=== PATIENT | male | born 1970 | race Caucasian/White ===

== ENCOUNTER 2017-04-16 19:25 | Observation (INO) | payer BC, OTHER ==
[2017-04-16] MEDS ORDERED: Nitroglycerin 2% Ointment 1 INCH/1 GM Packet ONE (20:15)
[2017-04-16 20:29] LABS: #Basophils 0.1 thou/uL (0.0-0.2); #Eosinphils 0.3 thou/uL (0.0-0.7); #Lymphocytes 2.4 thou/uL (1.20-3.40); #Monocytes 0.8 thou/uL (0.11-0.59); #Neutrophils 6.7 thou/uL (1.40-6.50); %Basophils 0.7 % (0.0-1.0); %Eosinophils 2.6 % (0.0-10.0); %Lymphocytes 23.3 % (21.0-51.0); %Monocytes 8.3 % (0.0-10.0); Hematocrit 50.4 % (42.0-52.0); Mean Platelet Volume 6.5 fL (7.4-10.4); White Blood Cell (WBC) Count 10.2 thou/uL (4.8-10.8)
[2017-04-16] MEDS ORDERED: Acetaminophen 500 MG TAB ONE (20:34)
[2017-04-16 20:48] LABS: Bilirubin Negative (Negative); Blood, Urine Trace (Negative); Glucose, Urine (Dipstick) Negative (Negative); Ketone, Urine Negative (Negative); Nitrite Negative (Negative); Protein, Urine (Dipstick) Trace mg/dL (Neg-Trace); Urobilinogen 0.2 mg/dL (0.2-1.0)
[2017-04-16 20:54] LABS: ALT (SGPT) 45 U/L (8-55); AST (SGOT) 29 U/L (5-34); Alkaline Phosphatase 53 U/L (40-150); Anion Gap 15 mmol/L (10-20); BUN (Urea Nitrogen) 10 mg/dL (8.9-20.6); Bilirubin, Total 0.8 mg/dL (0.2-1.2); CK (CPK) 145 U/L (30-200); Calc. Creatinine Clearance 0 mL/min (70-130); Calcium 9.4 mg/dL (7.8-10.44); Carbon Dioxide 23 mmol/L (22-29); Chloride 106 mmol/L (98-107); Estimated GFR-MDRD 87; Globulin 2.7 g/dL (2.4-3.5); Lipase 15 U/L (8-78); Protein, Total 6.9 g/dL (6.0-8.3)
[2017-04-16 20:56] LABS: Bacteria/HPF None Seen HPF (None Seen); Hyaline Casts/LPF 0-3 HYALINE CAST LPF (0-3 Hyaline); RBC/HPF 0-3 HPF (0-3); Squamous Epithelial None Seen HPF (0-3); WBC/HPF None Seen HPF (0-3)
[2017-04-16 20:58] LABS: Troponin I Less than 0.010 ng/mL (< 0.028)
--- NOTE | 2017-04-16 21:41 | RAD ---
PA AND LATERAL CHEST: Date: 04-16-17 History: Chest pain upon waking up at 1630 hours. Comparison: 11-03-12 FINDINGS: There is focal eventration of the left hemidiaphragm which is stable when compared to the prior exam . There is minimal linear atelectasis versus scarring at the left lung base. The lungs are otherwise clear. Cardiac silhouette and pulmonary vasculature is within normal limits. Degenerative changes a re seen in the spine. There has been no interval change from the prior exam. IMPRESSION: No acute cardiopulmonary process. POS: ANGELA
[2017-04-16 23:12] LABS: Troponin I Less than 0.010 ng/mL (< 0.028)
[2017-04-16] MEDS ORDERED: Ondansetron HCl/PF 4 MG/2 ML Vial IVP PRN (23:16)
[2017-04-16] MEDS ORDERED: Ondansetron ODT 4 MG TAB SL PRN (23:16)
[2017-04-16 23:32] VITALS: BMI 38.2
[2017-04-17 02:21] LABS: Troponin I Less than 0.010 ng/mL (< 0.028)
--- NOTE | 2017-04-17 07:42 | PDOC.EVN ---
Event Note - Event Note Event Note: H&P: 042924 #Chest Pain * serial troponins negative * CXR: no acute infiltrates * check Stress test today * prn analgesics * check labs in AM Admit Telemetry.
--- NOTE | 2017-04-17 08:02 | HP ---
DATE OF ADMISSION: 04/17/2017 at 7:37 a.m. CHIEF COMPLAINT: Left-sided chest pain. HISTORY OF PRESENT ILLNESS: This is a 47-year-old male with a past medical history of tobacco abuse who has been smoking 1 pack per day since the age of 14 and drinking 6 beers per week, who came in with left-sided chest pain radiating to the left scapula. His symptoms began at 1630 yesterday upo n awakening. His pain is worse with exertion, but denies any associated nausea, shortness of breath , diaphoresis or vomiting. He reports that the severity of his pain at its worse was 6-10. REVIEW OF SYSTEMS: A 14 point review of systems is negative except as otherwise indicated above in the HPI. PAST MEDICAL HISTORY: 1. Tobacco abuse. 2. Obesity. PAST SURGICAL HISTORY: No recent surgeries. FAMILY HISTORY: The patient reports that he has a grandfather who may have had cardiac disease, but he is not sure and this occurred in his 60s. SOCIAL HISTORY: The patient is smoking 1 pack per day since the age of 14 and drinks 6 beers per we ek. He denies any illicit drug use. ALLERGIES/MEDICATIONS/IMAGING: Reviewed, please refer to the chart for details. PHYSICAL EXAMINATION: VITAL SIGNS: Temperature 98.3, 73, 24, 96, 114/67. GENERAL: The patient was lying comfortably in bed when I entered the room, in no acute distress, wo rking on his computer. HEENT: Normocephalic, atraumatic. NECK: Supple, no rigidity. LYMPH NODES: No cervical or supraclavicular lymphadenopathy. CARDIOVASCULAR: S1 and S2 are audible with regular rate and rhythm. LUNGS: Clear to auscultation bilaterally with no wheezes, rales or rhonchi. ABDOMEN: Obese; however, soft, nontender. Positive bowel sounds. No guarding, rebound or rigidity . : No CVA tenderness bilaterally. No suprapubic tenderness either. MUSCULOSKELETAL: No calf tenderness bilaterally. No clubbing, cyanosis or edema of the extremities . PSYCHIATRIC: Appropriate, and cooperative. NEUROLOGIC: Alert and oriented x3, answering questions appropriately with judgment intact. SKIN: Warm, dry with moist mucous membranes. ASSESSMENT AND PLAN: This is a 47-year-old male presenting with left-sided chest pain. 1. Left-sided chest pain. Serial troponins were negative. We will check a stress test today. If negative, will be discharged home with follow up with PCP in 1 week. If it is positive, I will cons ult Cardiology. P.r.n. analgesics will be prescribed. The patient's diet will be resumed after his stress test presuming that it is negative. The patient has been counseled on smoking cessation. 2. Tobacco abuse. The patient has been counseled on smoking cessation. Admit to telemetry for observation for chest pain.
[2017-04-17 15:31] VITALS: BP 134/79; TEMP 98.2
--- NOTE | 2017-04-17 16:19 | PDOC.EVN ---
Event Note - Event Note Event Note: DC Summary: [id number]
--- NOTE | 2017-04-17 16:22 | NM ---
CARDIAC SPECT: CLINICAL HISTORY: 47-year-old male with chest pain, smoker, family history of coronary artery disease. TECHNIQUE: A myocardial perfusion scan was performed using the single isotope one day protocol with technetium- 99m sestamibi. 11 mCi were injected intravenously for the rest exam followed by 33 mCi for the stres s exam. Exercise stress was monitored and interpreted by Vanessa Romero NP. FINDINGS: Homogeneous tracer distribution is seen in the myocardial segments on stress and rest images without fixed or reversible defects. GATED SPECT LVEF: 73%. WALL MOTION EXAM: Normal. IMPRESSION: Normal myocardial perfusion scan. POS: ANGELA
--- NOTE | 2017-04-18 08:03 | DIS ---
DATE OF ADMISSION: 04/17/2017 DATE OF DISCHARGE: 04/17/2017 PRIMARY DISCHARGE DIAGNOSIS: Musculoskeletal chest pain. SECONDARY DISCHARGE DIAGNOSES: 1. Tobacco abuse. 2. Obesity. HOSPITAL COURSE SUMMARY: This is a very pleasant 47-year-old male with a past medical history of to bacco abuse, who had been smoking one pack per day since the age of 14 and drinking 6 beers a week, came in with left-sided chest pain radiating to the left scapula. He had serial cardiac enzymes, wh ich were unremarkable, thus ruling out acute coronary syndrome. A stress test was done today and fo und to be negative. Therefore, he was sent home to follow up with his PCP in one week. For discharge physical exam, labs, and imaging, please refer to my progress note from earlier today. DISCHARGE MEDICATIONS: Reviewed and reconciled. Please refer the chart for details. DISCHARGE PLAN/DISPOSITION: 1. Discharged home today. 2. Follow up with PCP in 1 week. 3. No changes to home medications have been made.
--- NOTE | 2017-04-20 14:57 | EKG ---
Test Reason : Blood Pressure : / mmHG Vent. Rate : 083 BPM Atrial Rate : 083 BPM P-R Int : 160 ms QRS Dur : 132 ms QT Int : 396 ms P-R-T Axes : 070 176 044 degrees QTc Int : 465 ms Normal sinus rhythm Possible Left atrial enlargement Right bundle branch block Septal infarct , age undetermined Abnormal ECG Confirmed by EMY ANDERSON D.O. ([id number]), commissioning editor EZE BROWN ([id number]) on 04/20/2017 2:57:24 PM Referred By: Confirmed By:EMY ANDERSON D.O.
== END 2017-04-17 15:36 | disposition home or self-care (01) ==
LOC: ERS 19:25 → 2SW 21:40
PROVIDERS: ADMIT Internal Medicine; ATTEND Internal Medicine
DX: R07.89 Other chest pain (principal); F17.210 Nicotine dependence, cigarettes, uncomplicated; E66.9 Obesity, unspecified; Z68.38 Body mass index [BMI] 38.0-38.9, adult; Z72.89 Other problems related to lifestyle
CPT/HCPCS: 36415; 71020; 78452; 80053; 81001; 82550; 82553; 83690; 84484; 85025; 93005; 93017; A9500; G0378

== ENCOUNTER → 2022-08-03 | Outpatient (CLI) | payer BC | LOC: PET 11:00 | PROVIDERS: ATTEND Internal Medicine Critical Care Medicine | DX: R91.1 Solitary pulmonary nodule (principal) | CPT/HCPCS: 78815; A9552 ==

== ENCOUNTER 2022-11-07 09:58 | Outpatient (CLI) | payer BC | END 2022-11-07 09:59 | disposition home or self-care (01) | LOC: BICCT 09:58 | PROVIDERS: ATTEND Internal Medicine Critical Care Medicine | DX: R91.1 Solitary pulmonary nodule (principal); R91.8 Other nonspecific abnormal finding of lung field | CPT/HCPCS: 71250 ==

== ENCOUNTER 2023-05-23 10:58 | Outpatient (CLI) | payer BC | END 2023-05-23 10:59 | disposition home or self-care (01) | LOC: BICCT 10:58 | PROVIDERS: ATTEND Internal Medicine Critical Care Medicine | DX: R91.8 Other nonspecific abnormal finding of lung field (principal) | CPT/HCPCS: 71250 ==

== ENCOUNTER 2023-06-06 17:00 | Outpatient (CLI) | payer BC | END 2023-06-06 17:01 | disposition home or self-care (01) | LOC: SLEEPLAB 17:00 | PROVIDERS: ATTEND Internal Medicine Critical Care Medicine | DX: G47.33 Obstructive sleep apnea (adult) (pediatric) (principal); R06.89 Other abnormalities of breathing; E66.9 Obesity, unspecified; R06.83 Snoring; Z68.38 Body mass index [BMI] 38.0-38.9, adult | CPT/HCPCS: 95800 ==

== ENCOUNTER 2024-07-18 10:40 | Outpatient (CLI) | payer BC ==
[2024-07-18 12:09] LABS: #Basophils 0.08 10x3/uL (0.0-0.2); %Basophils 0.8 % (0.0-1.0); %Eosinophils 3.4 % (0.0-10.0); %Lymphocytes 17.6 % (21.0-51.0); %Monocytes 8.7 % (0.0-10.0); %Neutrophils 68.7 % (42.0-75.0); Hemoglobin 15.9 g/dL (14.0-18.0); Mean Corpuscular HGB CONC 36.1 g/dL (32.0-36.0); Mean Corpuscular Hemoglobin 31.4 pg (27.0-31.0); Mean Platelet Volume 8.8 fL (7.4-10.4); Platelet Count 271 10x3/uL (130-400); RBC Distribution Width 12.3 % (11.5-14.5); Red Blood Cell (RBC) Count 5.06 mill/uL (4.70-6.10)
[2024-07-18 12:27] LABS: Anion Gap 12 mmol/L (10-20); BUN (Urea Nitrogen) 11 mg/dL (8.4-25.7); Calc. Creatinine Clearance 0 mL/min (70-130); Calcium 9.4 mg/dL (7.8-10.44); Carbon Dioxide 20 mmol/L (22-29); Chloride 107 mmol/L (98-107); Estimated GFR 82; Glucose 125 mg/dL (70-105); Potassium 3.7 mmol/L (3.5-5.1); Sodium 135 mmol/L (136-145)
== END 2024-07-18 10:41 | disposition home or self-care (01) ==
LOC: LABBT 10:40
PROVIDERS: ATTEND Thoracic Surgery (Cardiothoracic Vascular Surgery)
DX: Z01.818 Encounter for other preprocedural examination (principal); R91.1 Solitary pulmonary nodule
CPT/HCPCS: 80048; 85025; 93005; 93010

== ENCOUNTER 2024-07-18 11:00 | Inpatient (IN) | payer BC ==
[2024-07-21] MEDS ORDERED: Fentanyl 250 MCG/5 ML VIAL ONE (11:59)
[2024-07-21] MEDS ORDERED: Midazolam HCl 2 mg/2 ml Vial ONE ×2 (11:59→12:14)
[2024-07-21] MEDS ORDERED: PROPOFOL 20 ML ONE (11:59)
[2024-07-21] MEDS ORDERED: Bupivacaine PF 0.5% 30 ML VIAL ONE (12:01)
[2024-07-21] MEDS ORDERED: EPINEPHrine 1 MG/ML VIAL ONE (12:01)
[2024-07-21] MEDS ORDERED: Dexamethasone 20 MG/5 ML VIAL ONE (12:02)
[2024-07-21] MEDS ORDERED: Rocuronium Bromide 10 MG/ML (10ML VIAL) ONE (12:02)
[2024-07-21] MEDS ORDERED: Ondansetron PF 4 MG/2 ML Vial ONE (12:02)
[2024-07-21] MEDS ORDERED: Lidocaine 2% 6 ML (Jelly) SYR ONE (12:02)
[2024-07-21] MEDS ORDERED: Lidocaine 1% PF 5 ML VIAL ONE (12:02)
[2024-07-21] MEDS ORDERED: CEFAZOLIN 2 GM VIAL ONE (12:11)
[2024-07-21] MEDS ORDERED: SUGAMMADEX SODIUM 200 MG/2 ML VIAL ONE (13:13)
[2024-07-21] MEDS ORDERED: Meperidine HCl/PF 25 MG/ML VIAL SLOW IVP PRN (13:45)
[2024-07-21] MEDS ORDERED: HYDROmorphone 2 MG/ML VIAL SLOW IVP PRN (13:45)
[2024-07-21] MEDS ORDERED: Ketorolac Tromethamine 30 MG/ML VIAL IVP PRN (13:45)
[2024-07-21] MEDS ORDERED: Ondansetron HCl/PF 4 MG/2 ML Vial IVP PRN (13:45)
[2024-07-21] MEDS ORDERED: Promethazine HCl 25 MG/ML VIAL IM PRN (13:45)
[2024-07-21] MEDS ORDERED: hydrALAZINE 20 MG/ML VIAL SLOW IVP PRN (13:57)
[2024-07-21] MEDS ORDERED: Albuterol 200 PUFF (6.7GM INHALER) INH PRN (13:57)
[2024-07-21] MEDS ORDERED: Ipratropium/Albuterol 3 ML NEB NEB PRN (13:57)
[2024-07-21] MEDS ORDERED: HYDROcodone/Acetaminophen 5/325 mg Tablet PO PRN (13:57)
[2024-07-21] MEDS ORDERED: Ondansetron PF 4 MG/2 ML Vial IVP PRN (13:57)
[2024-07-21] MEDS ORDERED: fentaNYL 50 mcg/mL 1 mL Vial ONE ×2 (14:05→15:22)
[2024-07-21] MEDS ORDERED: HYDROmorphone 0.5 MG/0.5 ML SYRINGE ONE ×3 (14:12→15:10)
[2024-07-21] MEDS ORDERED: diphenhydrAMINE 25 MG CAP PO PRN (14:35)
[2024-07-21] MEDS ORDERED: Ibuprofen 200 MG TAB PO PRN (14:41)
[2024-07-21 17:39] VITALS: BMI 39.9
[2024-07-21] MEDS: Sodium Chloride 0.9% 1,000 ML IV SCH (18:15)
[2024-07-21] MEDS: Mometasone 200 MCG/Formoterol 5 MCG 120 PUFF INHALER INH SCH (19:46)
[2024-07-21] MEDS: HYDROcodone/Acetaminophen 5/325 mg Tablet PO PRN (19:49)
[2024-07-21] MEDS: CEFAZOLIN 2 GM in Sodium Chloride 0.9% 100 ML IVPB SCH (19:50)
[2024-07-21] MEDS: fentaNYL 50 mcg/mL 1 mL Vial SLOW IVP PRN (22:37)
[2024-07-22 04:17] LABS: #Basophils 0.03 10x3/uL (0.0-0.2); #Eosinophils Less than 0.03 10x3/uL (0.0-0.7); %Basophils 0.2 % (0.0-1.0); %Lymphocytes 3.6 % (21.0-51.0); %Monocytes 4.7 % (0.0-10.0); %Neutrophils 90.8 % (42.0-75.0); Hematocrit 43.5 % (42.0-52.0); Hemoglobin 15.6 g/dL (14.0-18.0); Mean Corpuscular HGB CONC 35.9 g/dL (32.0-36.0); Mean Corpuscular Hemoglobin 31.5 pg (27.0-31.0); Mean Corpuscular Volume 87.7 fL (78.0-98.0); Mean Platelet Volume 8.8 fL (7.4-10.4); Platelet Count 299 10x3/uL (130-400); RBC Distribution Width 12.5 % (11.5-14.5); Red Blood Cell (RBC) Count 4.96 mill/uL (4.70-6.10)
[2024-07-22 04:29] LABS: Anion Gap 15 mmol/L (10-20); BUN (Urea Nitrogen) 11 mg/dL (8.4-25.7); Calc. Creatinine Clearance 135 mL/min (70-130); Calcium 9.4 mg/dL (7.8-10.44); Carbon Dioxide 20 mmol/L (22-29); Chloride 105 mmol/L (98-107); Estimated GFR 80; Glucose 157 mg/dL (70-105); Potassium 4.4 mmol/L (3.5-5.1); Sodium 136 mmol/L (136-145)
[2024-07-22] MEDS: fentaNYL 50 mcg/mL 1 mL Vial SLOW IVP PRN (09:00)
[2024-07-23 07:51] VITALS: BP 146/84; TEMP 98.6
== END 2024-07-23 09:30 | disposition home or self-care (01) | DRG 168 ==
LOC: SURG A 07-21 07:46 → 2NO 07-21 16:29
PROVIDERS: ADMIT Thoracic Surgery (Cardiothoracic Vascular Surgery); ATTEND Thoracic Surgery (Cardiothoracic Vascular Surgery)
PROC: 0BBD4ZX Excision of Right Middle Lung Lobe, Percutaneous Endoscopic Approach, Diagnostic (ICD-10-PCS; principal; 2024-07-21)
PROC: 0BBC4ZX Excision of Right Upper Lung Lobe, Percutaneous Endoscopic Approach, Diagnostic (ICD-10-PCS; 2024-07-21)
PROC: 3E033XZ Introduction of Vasopressor into Peripheral Vein, Percutaneous Approach (ICD-10-PCS; 2024-07-21)
PROC: 5A09357 Assistance with Respiratory Ventilation, Less than 24 Consecutive Hours, Continuous Positive Airway Pressure (ICD-10-PCS; 2024-07-21)
DX: C34.90 Malignant neoplasm of unspecified part of unspecified bronchus or lung (principal); R91.1 Solitary pulmonary nodule; Z79.899 Other long term (current) drug therapy; Z90.89 Acquired absence of other organs; Z98.890 Other specified postprocedural states; Z87.891 Personal history of nicotine dependence
CPT/HCPCS: 36415; 71045; 80048; 85025; 87070; 87102; 87116; 87205; 87206; 88307; A4649; J0171; J0665; J1100; J1171; J2250; J2405; J2704; J3010

== ENCOUNTER 2024-08-04 13:50 | Outpatient (CLI) | payer BC | END 2024-08-04 13:51 | disposition home or self-care (01) | LOC: RAD 13:50 | PROVIDERS: ATTEND Thoracic Surgery (Cardiothoracic Vascular Surgery) | DX: R91.8 Other nonspecific abnormal finding of lung field (principal); Z48.03 Encounter for change or removal of drains | CPT/HCPCS: 71046 ==

== ENCOUNTER 2025-07-02 11:26 | Outpatient (CLI) | payer BC | END 2025-07-02 11:27 | disposition home or self-care (01) | LOC: PET 11:26 | PROVIDERS: ATTEND Internal Medicine Hematology & Oncology | DX: C34.11 Malignant neoplasm of upper lobe, right bronchus or lung (principal) | CPT/HCPCS: 78815; A9552 ==